=== PATIENT | male | born 1960 | race Two or more races ===

== ENCOUNTER → 2018-04-13 16:40 | Outpatient (CLI) | payer BC ==
[2012-12-27 07:33] VITALS: BMI 37.3
[~2018-04-13 16:40] MED LIST: FISH OIL 1,0001 CA1 PO; NORCO 10/325 TA1 TA1 PO
== END | disposition home or self-care (01) ==
LOC: D.CT 16:40
DX: R22.0 Localized swelling, mass and lump, head (principal)